=== PATIENT | male | born 1975 | race African-American/Black ===

== ENCOUNTER 2017-09-29 13:02 | Emergency (ER) | payer MEDICARE, MEDICAID ==
--- NOTE | 2017-09-29 13:48 | ER Document Report ---
ED Medical Screen (RME) - General Chief Complaint: Pain All Over Stated Complaint: WEAKNESS Time Seen by Provider: 09/29/17 13:42 Mode of Arrival: Ambulatory Information source: Patient Notes: Patient presents with lethargy weakness as well as cough cold and congestion for several weeks. He states he had a renal transplant approximately 2 years ago. He says he has had no problems since the transplant. TRAVEL OUTSIDE OF THE [place] IN LAST 30 DAYS: No - Related Data Allergies/Adverse Reactions: NEETA Inhibitors Allergy (Verified 09/29/17 13:44) Home Medications: Current Home Medications Mycophenolate Sodium [Myfortic 180 mg Tablet.dr] 540 mg PO BID 09/29/17 [History ] Prednisone [Prednisone] 5 mg PO DAILY 09/29/17 [History] Tacrolimus [Prograf] 5 mg PO BID 09/29/17 [History] Past Medical History - Social History Chew tobacco use (# tins/day): No Frequency of alcohol use: Rare Drug Abuse: None Renal/ Medical History: Denies: Hx Peritoneal Dialysis Physical Exam - Vital signs Vitals: Temp Pulse Resp BP Pulse Ox 98.0 F 94 18 168/88 H 99 09/29/17 13:06 09/29/17 13:06 09/29/17 13:06 09/29/17 13:06 09/29/17 13:06 Course - Vital Signs Vital signs: Temp Pulse Resp BP Pulse Ox 98.0 F 94 18 168/88 H 99 09/29/17 13:06 09/29/17 13:06 09/29/17 13:06 09/29/17 13:06 09/29/17 13:06
[2017-09-29 14:26] LABS: HEMATOCRIT 33.8 % (37.9-51.0); HEMOGLOBIN 11.4 g/dL (13.5-17.0); MEAN CORPUSCULAR HEMOGLOBIN 28.5 pg (27.0-33.4); MEAN CORPUSCULAR HGB CONC 33.8 g/dL (32.0-36.0); MEAN CORPUSCULAR VOLUME 85 fl (80-97); PLATELET COUNT 231 10^3/uL (150-450); RED CELL DISTRIBUTION WIDTH 14.2 % (11.5-14.0); WHITE BLOOD COUNT 9.8 10^3/uL (4.0-10.5)
[2017-09-29 14:33] LABS: AMORPHOUS SEDIMENT,URINE TRACE /HPF; APPEARANCE,URINE CLEAR; BILIRUBIN,URINE NEGATIVE (NEGATIVE); COLOR,URINE STRAW; GLUCOSE, URINE 50 mg/dL (NEGATIVE); KETONES,URINE NEGATIVE (NEGATIVE); LEUKOCYTE ESTERASE,URINE NEGATIVE (NEGATIVE); NITRITE,URINE NEGATIVE (NEGATIVE); PROTEIN,URINE 30 mg/dL (NEGATIVE); UROBILINOGEN,URINE NEGATIVE mg/dL (<2.0)
[2017-09-29 14:48] LABS: ALANINE AMINOTRANSFERASE 23 U/L (21-72); ALBUMIN 4.3 g/dL (3.5-5.0); ALKALINE PHOSPHATASE 60 U/L (38-126); ANION GAP 16 (5-19); ASPARTATE AMINO TRANSFERASE 20 U/L (17-59); BILIRUBIN,DIRECT 0.4 mg/dL (0.0-0.4); BILIRUBIN,TOTAL 0.5 mg/dL (0.2-1.3); BLOOD UREA NITROGEN 78 mg/dL (7-20); CALCIUM 9.4 mg/dL (8.4-10.2); CARBON DIOXIDE 15 mmol/L (22-30); CHLORIDE 113 mmol/L (98-107); GLUCOSE 97 mg/dL (75-110); POTASSIUM 5.9 mmol/L (3.6-5.0); SODIUM 144.4 mmol/L (137-145); TOTAL PROTEIN 7.3 g/dL (6.3-8.2)
[2017-09-29 14:52] LABS: ABSOLUTE LYMPHOCYTES# (MANUAL) 0.6 10^3/uL (0.5-4.7); ABSOLUTE MONOCYTES # (MANUAL) 0.1 10^3/uL (0.1-1.4); ABSOLUTE NEUTROPHILS# (MANUAL) 9.1 10^3/uL (1.7-8.2); ANISOCYTOSIS SLIGHT; BASOPHILS % (MANUAL) 0 % (0-2); EOSINOPHILS % (MANUAL) 0 % (0-6); LYMPHOCYTES % (MANUAL) 6 % (13-45); MONOCYTES % (MANUAL) 1 % (3-13); PLATELET COMMENT ADEQUATE; POLYCHROMASIA SLIGHT; SEGMENTED NEUTROPHILS % (MAN) 93 % (42-78); TOTAL CELLS COUNTED 100; TOXIC GRANULATION SLIGHT; TOXIC VACUOLATION PRESENT
--- NOTE | 2017-09-29 15:50 | ER Document Report ---
ED General - General Chief Complaint: Pain All Over Stated Complaint: WEAKNESS Time Seen by Provider: 09/29/17 13:42 Mode of Arrival: Ambulatory TRAVEL OUTSIDE OF THE [place] IN LAST 30 DAYS: No - HPI Notes: 42-year-old male status post renal transplant due to end-stage renal disease from hypertension proximally 2 years ago at [facility] presents with generalized symptoms for 2-3 weeks. Seems it started with more cough and cold congestion with some purulent rhinorrhea and cough. No fever that he is noted. He has had a little nausea but no vomiting. He has had some intermittent diarrhea approximately 1 watery stool every other day. States he just generally feels bad has had some generalized weakness with aches and pains. No other real specific symptoms. No specific chest pain but has had a little tightness, no shortness of breath though. Maintains normal urine output. He reports he has been taking his prednisone, Prograf/antirejection medications and not missing doses. States she has had no problems up to this point with his transplant. - Related Data Allergies/Adverse Reactions: NEETA Inhibitors Allergy (Verified 09/29/17 13:44) Home Medications: Current Home Medications Mycophenolate Sodium [Myfortic 180 mg Tablet.dr] 540 mg PO BID 09/29/17 [History ] Prednisone [Prednisone] 5 mg PO DAILY 09/29/17 [History] Tacrolimus [Prograf] 5 mg PO BID 09/29/17 [History] Past Medical History - General Information source: Patient - Social History Smoking Status: Current Every Day Smoker Chew tobacco use (# tins/day): No Frequency of alcohol use: Rare Drug Abuse: None Family History: Reviewed & Not Pertinent Patient has suicidal ideation: No Patient has homicidal ideation: No Renal/ Medical History: Denies: Hx Peritoneal Dialysis Past Surgical History: Reports: Hx Kidney (Renal Surgery) - Kidney Transplant Review of Systems - Review of Systems -: Yes All other systems reviewed and negative Physical Exam - Vital signs Vitals: Temp Pulse Resp BP Pulse Ox 98.0 F 94 18 168/88 H 99 09/29/17 13:06 09/29/17 13:06 09/29/17 13:06 09/29/17 13:06 09/29/17 13:06 Interpretation: Hypertensive - Notes Notes: GENERAL: VS as per nursing doc. Well-appearing, well-nourished and in no acute distress. Some very mild generalized edema is noted HEAD: Atraumatic, normocephalic. EYES: Pupils equal round and reactive to light, extraocular movements intact, sclera anicteric, no conjunctival injection or discharge. ENT: Nares patent, oropharynx clear without exudates, moist mucous membranes. NECK: Normal range of motion, supple without lymphadenopathy. LUNGS: Breath sounds coarse but clear to auscultation bilaterally otherwise. No wheezes rales or rhonchi. HEART: Regular rate and rhythm without murmurs. ABDOMEN: Soft, non-tender, normoactive bowel sounds. No guarding, no rebound. No masses appreciated. No [place] sign. BACK: No CVA tenderness. EXTREMITIES: Normal range of motion, no calf tenderness. Palpable left forearm AV graft. NEUROLOGICAL: Cranial nerves grossly intact. Normal speech. Normal sensory and motor exams. No gross cerebellar abnormalities. PSYCH: Normal mood, normal affect. SKIN: Warm, dry, no petechiae. Course - Re-evaluation Re-evalutation: 09/29/17 16:27 [facility] contacted for transfer. 09/29/17 17:[address] Montoya and she accepts as a transfer to the emergency department and [facility]. Patient is aware of risks and benefits with need to due to transplant services at that facility. Requests treatment of potassium. 09/29/17 19:38 Patient seen at time of transfer. No requests or new issues. Bicarb drip is going at this point. They will do another Accu-Chek to verify that there is no hypoglycemia after the dextrose and insulin were given. - Vital Signs Vital signs: Temp Pulse Resp BP Pulse Ox 98.0 F 94 20 153/87 H 100 09/29/17 13:06 09/29/17 13:06 09/29/17 19:26 09/29/17 19:26 09/29/17 19:26 - Laboratory Result Diagrams: 09/29/17 14:00 09/29/17 14:00 Laboratory results interpreted by me: 09/29/17 09/29/17 09/29/17 13:55 14:00 14:00 RBC 4.00 L Hgb 11.4 L Hct 33.8 L RDW 14.2 H Seg Neuts % (Manual) 93 H Lymphocytes % (Manual) 6 L Monocytes % (Manual) 1 L Abs Neuts (Manual) 9.1 H Potassium 5.9 H Chloride 113 H Carbon Dioxide 15 L BUN 78 H Creatinine 14.90 H Est GFR ( Amer) 4 L Est GFR (Non-Af Amer) 4 L Urine Protein 30 H Urine Glucose (UA) 50 H Urine Blood MODERATE H - EKG Interpretation by Vt EKG shows normal: Sinus rhythm - Rate 76. There is some slight peaking of the T waves particularly in V2 and V3 but no QRS widening. No clear evidence of ischemia. Discharge - Discharge Disposition: HOME, SELF-CARE
[2017-09-29 16:05] LABS: PROTHROMBIN TIME 13.9 SEC (11.4-15.4)
--- NOTE | 2017-09-29 16:12 | RADIOLOGY REPORT (SQ) ---
EXAM DESCRIPTION: CHEST SINGLE VIEW COMPLETED DATE/TIME: 09/29/2017 4:02 pm REASON FOR STUDY: Cough COMPARISON: None. EXAM PARAMETERS: NUMBER OF VIEWS: One view. TECHNIQUE: Single frontal radiographic view of the chest acquired. RADIATION DOSE: NA LIMITATIONS: None. FINDINGS: LUNGS AND PLEURA: No opacities, masses or pneumothorax. No pleural effusion. MEDIASTINUM AND HILAR STRUCTURES: No masses. Contour normal. HEART AND VASCULAR STRUCTURES: Heart normal in size. Normal vasculature. BONES: No acute findings. HARDWARE: None in the chest. OTHER: No other significant finding. IMPRESSION: NO ACUTE RADIOGRAPHIC FINDING IN THE CHEST. TECHNICAL DOCUMENTATION: JOB ID: [id number] [employer]- All Rights Reserved
[2017-09-29] MEDS ORDERED: CALCIUM GLUCONATE 1000 MG/10 ML INJ IV ONE (16:59)
[2017-09-29] MEDS ORDERED: SODIUM BICARBONATE 4.2% INJ (2.4 MEQ/5 ML) VIAL INJ ONE (16:59)
[2017-09-29] MEDS ORDERED: INSULIN REG, HUMAN 100 UNIT/ML 3 ML VIAL (PYX) IV ONE (17:02)
[2017-09-29] MEDS ORDERED: DEXTROSE 50%-WATER 25 GM/50 ML DISP.SYRIN IV ONE (17:02)
[2017-09-29] MEDS ORDERED: SODIUM BICARBONATE 8.4% INJ 50 MEQ/50 ML DISP.SYRIN ONE ×2 (17:30→17:51)
[2017-09-29] MEDS ORDERED: SODIUM BICARBONATE 8.4% INJ 10 MEQ/10 ML DISP.SYRIN IV ONE (17:34)
[2017-09-29] MEDS ORDERED: DEXTROSE 5%-WATER 1000 ML 1,000 ML with SODIUM BICARBONATE 150 MEQ IV PRN ×2 (17:36)
[2017-09-29] MEDS ORDERED: SODIUM BICARBONATE 8.4% INJ 50 MEQ/50 ML DISP.SYRIN IV ONE (17:54)
[2017-09-29 19:37] VITALS: BP 153/87
--- NOTE | 2017-09-29 22:10 | EKG REPORT ---
SEVERITY:- NORMAL ECG - SINUS RHYTHM : Confirmed by: Barrera Griggs 29-Sep-2017 22:09:56
== END 2017-09-29 19:38 | disposition short-term general hospital (02) ==
LOC: ER 13:02
DX: N17.9 Acute kidney failure, unspecified (principal); Z94.0 Kidney transplant status; R53.1 Weakness; M79.1 Myalgia; I12.0 Hypertensive chronic kidney disease with stage 5 chronic kidney disease or end stage renal disease; N18.6 End stage renal disease; R11.0 Nausea; R19.7 Diarrhea, unspecified; R05 Cough; R09.81 Nasal congestion; Z79.899 Other long term (current) drug therapy; F17.200 Nicotine dependence, unspecified, uncomplicated
CPT/HCPCS: 93005; 99285; 96375; 96365; 36415; 82962; 85025; 85610; 80053; 81001; 71010; 93010; J0610; J3490 ×2; A9270; J7060; J1815